=== PATIENT | male | born 1980 | race Caucasian/White ===

== ENCOUNTER 2022-12-06 02:30 | Inpatient (IN) | payer BC, OTHER ==
[~2022-12-06] VITALS: Ht 177.8 cm; Wt 93.0 kg
[2022-12-06] MEDS ORDERED: MORPHINE SULFATE INJ 2 MG/ML DISP.SYRIN ONE (03:11)
[2022-12-06] MEDS ORDERED: ONDANSETRON HCL/PF 4 MG/2 ML VIAL ONE (03:11)
--- NOTE | 2022-12-06 03:22 | NUR ---
PATIENT BIBSELF C/O ABD PAIN STARTED AT 9PM. PATIENT IS A/O X 4, RR EVEN AND UNLABORED. PATIENT IS AFEBRILE. PATIENT TAKEN TO ER BED 13.
--- NOTE | 2022-12-06 03:25 | NUR ---
BLOOD WORK COLLECTED SENT TO LAB
[2022-12-06] MEDS ORDERED: MORPHINE SULFATE INJ 2 MG/ML DISP.SYRIN IV ONE (03:30)
[2022-12-06] MEDS ORDERED: ONDANSETRON HCL/PF 4 MG/2 ML VIAL IVP ONE (03:30)
[2022-12-06] MEDS ORDERED: IV NS 0.9% 1,000 ML BAG IV ONE (03:30)
--- NOTE | 2022-12-06 03:30 | NUR ---
PT TAKEN TO CT VIA SHANICE
[2022-12-06 03:36] LABS: BASOPHILS # (AUTO) 0.1 K/uL (0.0-0.2); BASOPHILS % (AUTO) 0.6 % (0.0-2.0); EOSINOPHILS % (AUTO) 0.4 % (0.0-6.0); HEMATOCRIT 40 % (39-51); LYMPHOCYTES % (AUTO) 11.4 % (20.0-44.0); MEAN CORPUSCULAR HGB CONC 35 g/dl (31.0-36.0); MEAN CORPUSCULAR VOLUME 88 fL (80-96); MONOCYTES # (AUTO) 0.8 K/uL (0.1-1.30); MONOCYTES % (AUTO) 4.6 % (2.0-12.0); NEUTROPHILS # (AUTO) 14.2 K/uL (1.8-8.9); PLATELET COUNT (AUTO) 229 K/uL (150-450); WHITE BLOOD COUNT (AUTO) 17.1 K/uL (4.3-11.0)
--- NOTE | 2022-12-06 04:25 | NUR ---
UPDATED JAYCE (MOTHER) [phone]
--- NOTE | 2022-12-06 04:44 | NUR ---
URINE COLLECTED AND SENT TO LAB
[2022-12-06 04:45] LABS: BILIRUBIN,DIRECT 0.1 mg/dL (0.0-0.2); BILIRUBIN,TOTAL 0.5 mg/dL (0.2-1.0); CALCIUM, SERUM 9.3 mg/dL (8.5-10.1); CREATININE 1.4 mg/dL (0.6-1.3); POTASSIUM 3.6 mmol/L (3.5-5.1)
[2022-12-06] MEDS ORDERED: KETOROLAC TROMETHAMINE INJ 30 MG/ML VIAL IV ONE (05:00)
[2022-12-06] MEDS ORDERED: KETOROLAC TROMETHAMINE INJ 30 MG/ML VIAL ONE (05:26)
--- NOTE | 2022-12-06 06:43 | NUR ---
CALLED [facility] IMAGE TO BE READ IN ABOUT 20 MINS
--- NOTE | 2022-12-06 07:04 | NUR ---
COVID ANTIGEN SWAB COLLECTED AND SENT TO LAB
[2022-12-06] MEDS ORDERED: ESOM40CA52 PO (08:20)
[2022-12-06 08:42] LABS: BILIRUBIN,URINE NEGATIVE (NEGATIVE); COLOR,URINE YELLOW (YELLOW); LEUKOCYTE ESTERASE ,URINE NEGATIVE (NEGATIVE); NITRITE, URINE NEGATIVE (NEGATIVE); PROTEIN,URINE NEGATIVE (NEGATIVE); UGLUCOSE NEGATIVE (NEGATIVE); UROBILINOGEN,URINE 0.2 EU/dL (0.2)
--- NOTE | 2022-12-06 09:02 | NUR ---
[facility] CALLED SECURITY INSTALLER PAGED.
[2022-12-06 09:13] LABS: BACTERIA,URINE Rare /HPF (None Seen); SQUAMOUS EPITHELIAL CELL,UR Few /HPF (None Seen); WBC,URINE 0-2 /HPF (0-3)
--- NOTE | 2022-12-06 09:50 | NUR ---
PT AWAKE AND VERBALLY RESPONSIVE, NOT IN ACUTE DISTRESS. NO COMPLAINT OF PAIN AT THIS TIME. PT AMBULATORY W/ STEADY GAIT.
--- NOTE | 2022-12-06 09:51 | NUR ---
DR CARDOZA ON THE PHONE W/ DR HERNANDEZ
--- NOTE | 2022-12-06 10:11 | NUR ---
CALLED DR. CODY GLEASON
--- NOTE | 2022-12-06 10:18 | NUR ---
DR. ROSS SPEAKING WITH DR. CARDOZA.
--- NOTE | 2022-12-06 10:55 | NUR ---
ROOM 114-1
--- NOTE | 2022-12-06 10:56 | NUR ---
[facility], WILL CALL BACK FOR REPORT
--- NOTE | 2022-12-06 11:16 | NUR ---
PT REPORT GIVEN TO [facility]
[2022-12-06 11:18] LABS: BAND % (MANUAL) 2 % (0.0-5.0); BASOPHILS % (MANUAL) 0 % (0.0-2.0); EOSINOPHILS % (MANUAL) 0 % (0-4); LYMPHOCYTES % (MANUAL) 13 % (16-48); MONOCYTES % (MANUAL) 11 % (0-11.0); NEUTROPHILS % (MANUAL) 74 (42-76)
[2022-12-06] MEDS ORDERED: IV NS 0.9% 1,000 ML IV PRN (11:30)
[2022-12-06] MEDS ORDERED: MAG HYDROX/AL HYDROX/SIMETH 30 ML UDC PO PRN (11:30)
[2022-12-06] MEDS ORDERED: CIPROFLOXACIN IV RTU 400 MG in PREMIX 1 EA IV SCH (11:30)
[2022-12-06] MEDS ORDERED: FLAGYL/NS RTU 500 MG/100 ML PIGGYBACK IV ONE (11:30)
[2022-12-06] MEDS ORDERED: MAGNESIUM HYDROXIDE 30 ML UDC PO PRN (11:30)
[2022-12-06] MEDS ORDERED: ONDANSETRON HCL/PF 4 MG/2 ML VIAL IVP PRN (11:30)
[2022-12-06] MEDS ORDERED: ACETAMINOPHEN 325 MG TABLET PO PRN (11:30)
--- NOTE | 2022-12-06 11:34 | NUR ---
PT TRANSFERRED TO [facility] VIA WHEELCHAIR. WARM HANDOFF GIVEN TO [facility].
[2022-12-06 12:00] VITALS: BP 124/74
--- NOTE | 2022-12-06 12:00 | NUR ---
RN NOTE PATIENT CAME FROM ER ON ROOM AIR AMBULATORY A/OX 4. LAC #20 INTACT FLUSHING PATIENT ON NS 0.9% 75 ML/HR. PATIENT COMPLAINS ABOUT ABDOMINAL PAIN CT DONE IN ER AND IT SHOWED POSSIBLY APPENDICITIS BUT UNCOMPLICATED REPORT GIVEN FROM ER NURSE ZULEIKA.
[2022-12-06] MEDS: HYDROCODONE/APAP 5/325MG TABLET PO PRN ×2 (12:28→23:37)
[2022-12-06] MEDS: PIPERACILLIN /TAZOBACTAM 4.5 G in IV D5W 50 ML IV SCH ×2 (14:42→17:47)
[2022-12-06] MEDS ORDERED: LIDOCAINE 1%-EPI 1:100,000 20 ML VIAL ONE (14:52)
[2022-12-06] MEDS ORDERED: BUPIVACAINE 0.25% 75 MG/30 ML VIAL ONE (14:52)
--- NOTE | 2022-12-06 15:00 | NUR ---
RN NOTE HAD A CALL FROM OR TO GET CONCEPT FROM PATIENT FOR LAPAROSCOPIC APPENDECTOMY POSSIBLE OPEN, BUT PATIENT REFUSED TO SIGN IT. PATIENT STATED DR. ROSS HAS TO COME HERE OR CALL ME AND EXPLAIN THE PROCEDURE AND THEM I WILL SIGN. LUC FROM OR NOTIFIED AND SHE SAID SHE WILL PASS THE MESSAGE TO DR. ROSS.
--- NOTE | 2022-12-06 16:30 | NUR ---
RN NOTE FLAGYL IV CANCELLED BY DR. HERNANDEZ. HE SAID NO NEED. THE MEDICATION WAS SUPPOSED TO GIVEN IN ER BUT IT WAS NOT VERIFIED IN THAT TIME, NOW THAT PATIENT IS IN [place] DR. HERNANDEZ SAID NO NEED. CURRENTLY PATIENT IS ON ZOSYN.
--- NOTE | 2022-12-06 18:44 | NUR ---
RN NOTE DR. ROSS CAME AT 1730 HE EXPLAINED THE PROCEDURE/ RISK AND BENEFITS TO THE PATIENT PATIENT WAS REQUESTED FOR LAPAROSCOPIC APPENDECTOMY POSSIBLE OPEN. PATIENT AGREED AND SIGNED THE PROCEDURE CONSENT FORM, GENERAL ANAESTHESIA, BLOOD TRANSFUSION CONSENT FORMS ALL PLACE IN PATIENT'S CHART. THE PROCEDURE WILL BE TONIGHT BUT WE DO NOT KNOW THE EXACT TIME. WILL ENDORSE THE PATIENT TO THE DEPARTMENT SPECIALIST NURSE FOR GATITO.
--- NOTE | 2022-12-06 19:30 | NUR ---
MS RN OPENING NOTES RECEIVED PATIENT AWAKE IN BED. 2 FAMILY MEMBER AT BED SIDE. NO PAIN NOTED. NO SOB NOTED. NO DISTRESS NOTED. PATIENT NPO FOR SURGERY FOR TONIGHT. AMBULATORY . NO DISTRESS NOTED. ALL NEEDS ATTENDED. IV SITE AT THE LEFT AC G # 20 INTACT AND RUNNING NS AT 75 ML/HR. ALL SAFETY MEASURES IN PLACE . BED IN THE LOWEST AND LOCKED POSITION. SIDE RAILS UP TIMES 2. CALL LIGHT AND TABLE IN EASY REACH. WILL CONTINUE TO MONITOR CLOSELY.
[2022-12-06 20:00] VITALS: BP 109/66
--- NOTE | 2022-12-06 20:48 | NUR ---
2047 Picked up by surgery team accompanied by family members. Patient AAO x 4. Belongings ( cell phone, clothes) given to patient's mother.
[2022-12-06] MEDS ORDERED: FENTANYL PF 100MCG/2ML AMPUL ONE (21:10)
[2022-12-06] MEDS ORDERED: ROCURONIUM BROMIDE 50 MG/5 ML ONE (21:10)
[2022-12-06] MEDS ORDERED: MORPHINE SULFATE INJ 2 MG/ML DISP.SYRIN IV PRN (21:30)
--- NOTE | 2022-12-06 23:57 | NUR ---
RN NOTES PATIENT BACK FROM SURGERY AT 2326. PATIENT A/O TIMES 4. COMPLAINS OF 7/10 PAIN WILL GIVEN PAIN MEDICATION. VITAL SIGNS IN NORMAL RANGES. NO SOB NOTED. MO DISTRESS NOTED. MOTHER AND SISTER IN THE ROOM. ALL NEEDS ATTENDED. PATIENT ABLE TO AMBULATE AND CONSUMING ICE CHIPS WITH APPLE JUICE TOLERATING WELL. ALL NEEDS ATTENDED. WILL CONTINUE TO MONITOR CLOSELY.
[2022-12-07] MEDS: PIPERACILLIN /TAZOBACTAM 4.5 G in IV D5W 50 ML IV SCH ×3 (00:09→10:18)
[2022-12-07] MEDS: HYDROCODONE/APAP 5/325MG TABLET PO PRN ×3 (04:31→13:19)
[2022-12-07 04:44] VITALS: BP 159/77
[2022-12-07 06:20] LABS: BASOPHILS % (AUTO) 0.2 % (0.0-2.0); HEMATOCRIT 39 % (39-51); HEMOGLOBIN 13.3 g/dL (13.5-17.5); LYMPHOCYTES # (AUTO) 0.8 K/uL (0.8-4.8); LYMPHOCYTES % (AUTO) 8.2 % (20.0-44.0); MEAN CORPUSCULAR HGB CONC 34 g/dl (31.0-36.0); MEAN CORPUSCULAR VOLUME 91 fL (80-96); MONOCYTES # (AUTO) 0.1 K/uL (0.1-1.30); MONOCYTES % (AUTO) 1.2 % (2.0-12.0); NEUTROPHILS # (AUTO) 8.6 K/uL (1.8-8.9); NEUTROPHILS % (AUTO) 90.4 % (43.0-81.0); PLATELET COUNT (AUTO) 211 K/uL (150-450); RED BLOOD CELL COUNT(AUTO) 4.33 MIL/uL (4.5-6.0); WHITE BLOOD COUNT (AUTO) 9.6 K/uL (4.3-11.0)
--- NOTE | 2022-12-07 07:10 | NUR ---
MS RN CLOSING NOTES PATIENT IS AWAKE IN BED. PATIENT A/O TIMES 4. VITAL SIGNS IN NORMAL RANGES. NO SOB NOTED. MO DISTRESS NOTED. ALL NEEDS ATTENDED. NO BLEEDING NOTED ON THE SURGERY SITE. PATIENT ABLE TO AMBULATE . ALL DUE MEDS GIVEN ORDERED. ALL NEEDS ATTENDED. ALL SAFETY MEASURES IN PLACE. BED LOCKED IN THE LOWEST POSITION. CALL LIGHT AND TABLE IN EASY REACH. SIDE RAILS UP TIMES 2. CALL LIGHT AND TABLE IN EASY REACH. WILL ENDORSE FOR GATITO.
[2022-12-07 07:17] LABS: CALCIUM, SERUM 8.7 mg/dL (8.5-10.1); CREATININE 1.4 mg/dL (0.6-1.3); POTASSIUM 4.5 mmol/L (3.5-5.1)
[2022-12-07 07:18] LABS: MAGNESIUM 2.4 mg/dL (1.8-2.4); PHOSPHORUS 3.2 mg/dL (2.5-4.9)
[2022-12-07] MEDS ORDERED: PANTOPRAZOLE 40 MG TABLET.DR PO SCH (07:30)
[2022-12-07 12:00] VITALS: BP 108/66
--- NOTE | 2022-12-07 14:45 | NUR ---
DANCE THERAPIST NOTE PATIENT STABLE, ALERT ORIENTED X4 UPON DISCHARGE. AMBULATORY ON ROOM AIR. RAC G#20 REMOVED BEFORE PATIENT LEAVES THE HOSPITAL. PATIENT'S MOTHER PICKED UP THE PATIENT AND I WALKED WITH THEM TO THE LOBBY. PATIENT WAS SATISFIED WITH TOTAL NURSING CARE AND SURGERY (APPENDECTOMY) BY DR. ROSS. PATIENT ASKED FOR HOME MEDICATION NORCO BUT DR. HERNANDEZ REFUSED AND STATED THAT PATIENT CAN GET TYLENOL OTC. PATIENT AGREED, BUT CALLED HIS PRIMARY DOCTOR FOR PAIN MEDICATION. PATIENT'S VITAL SIGN WNL UPON DISCHARGE.
== END 2022-12-07 15:49 | disposition home or self-care (01) | DRG 342 ==
LOC: ER 02:32 → MEDSG1 11:15
PROC: 0DTJ4ZZ Resection of Appendix, Percutaneous Endoscopic Approach (ICD-10-PCS; principal; 2022-12-06)
DX: K35.80 Unspecified acute appendicitis (principal); E87.1 Hypo-osmolality and hyponatremia; Z20.822 Contact with and (suspected) exposure to COVID-19; K40.20 Bilateral inguinal hernia, without obstruction or gangrene, not specified as recurrent; K21.9 Gastro-esophageal reflux disease without esophagitis; Z88.0 Allergy status to penicillin; N18.9 Chronic kidney disease, unspecified; R73.9 Hyperglycemia, unspecified; K38.1 Appendicular concretions
CPT/HCPCS: 36415; 80048-TC; 80076-TC; 81001; 83690-TC; 83735-TC; 84100-TC; 85025-TC; 85610-TC; 85730-TC; 87081-TC; 88304-TC; A4216; A4629; C9803; G0378; J0330; J0690; J0744; J1100; J1885; J2270; J2405; J2543; J2704; J3010; J3490; J7030; J7060